=== PATIENT | male | born 1955 | race Caucasian/White ===

== ENCOUNTER 2017-08-14 18:02 | Inpatient (IN) | payer MEDICARE, MEDICAID ==
[~2017-08-14] VITALS: Ht 162.6 cm; Wt 67.3 kg
[2017-08-14] MEDS ORDERED: METFORMIN PO (19:45)
[2017-08-14] MEDS ORDERED: LISI-662 PO (19:45)
[2017-08-14] MEDS ORDERED: CLOP75 PO (19:45)
[2017-08-14] MEDS ORDERED: FINA5TAB41 PO (19:45)
[2017-08-14] MEDS ORDERED: ATOR40TA28 PO (19:45)
[2017-08-14] MEDS ORDERED: CARV25 PO (19:45)
[2017-08-14] MEDS ORDERED: QUET25TA PO (19:45)
[2017-08-14] MEDS ORDERED: TERA5 PO (19:45)
[2017-08-14] MEDS ORDERED: METF500T6 PO (19:46)
[2017-08-14 20:18] LABS: BASOPHILS % (AUTO) 1.1 % (0.0-2.0); EOSINOPHILS % (AUTO) 3.3 % (1.0-6.0); HEMATOCRIT 40.3 % (41-53); HEMOGLOBIN 14.2 g/dL (13.5-17.5); LYMPHOCYTES % (AUTO) 28.2 % (22.0-44.0); MEAN CORPUSCULAR HEMOGLOBIN 30.7 pg (26.0-34.0); MEAN CORPUSCULAR HGB CONC 35.3 G/dL (31.0-37.0); MEAN CORPUSCULAR VOLUME 87 fL (80-100); MONOCYTES # (AUTO) 0.7 K/uL (0.1-1.0); MONOCYTES % (AUTO) 10.1 % (2.0-9.0); NEUTROPHILS # (AUTO) 4.1 K/uL (1.8-7.7); NEUTROPHILS % (AUTO) 57.3 % (40.0-70.0); PLATELET COUNT (AUTO) 210 K/uL (150-450); RED BLOOD CELL COUNT(AUTO) 4.62 MIL/uL (4.50-5.90)
[2017-08-14 20:45] LABS: ANION GAP 5 mmol/L (8-16); CALCIUM, TOTAL 8.5 mg/dL (8.8-10.5); CARBON DIOXIDE 28 mmol/L (22-29); CHLORIDE 102 mmol/L (98-107); CREATININE 1.21 mg/dL (0.60-1.30); GLOMERULAR FILTR. RATE CALC > 60 mL/min (>60); GLUCOSE,RANDOM 293 mg/dL (70-110); POTASSIUM 4.1 mmol/L (3.5-5.1); SODIUM SERUM 135 mmol/L (136-145); UREA NITROGEN, BLOOD 23 mg/dL (7-18)
[2017-08-14 20:52] LABS: ALANINE AMINOTRANSFERASE 23 U/L (12-78); ALBUMIN 2.9 g/dL (3.4-5.0); ALKALINE PHOSPHATASE 83 U/L (46-116); ASPARTATE AMINOTRANSFERASE 14 U/L (15-37); BILIRUBIN,TOTAL 0.3 mg/dL (0.1-1.0)
[2017-08-14] MEDS ORDERED: MetFORMIN HCL 500 MG TABLET PO ONE (21:15)
[2017-08-14] MEDS ORDERED: 0.9% SODIUM CHLORIDE 10 ML SYRINGE IVP PRN (21:15)
[2017-08-14] MEDS ORDERED: SODIUM CHLORIDE 0.9% 1,000 ML IV ONE ×2 (21:15→22:45)
[2017-08-14] MEDS ORDERED: TERAZOSIN HCL 5 MG CAPSULE PO ONE (21:15)
[2017-08-14] MEDS ORDERED: ONDANSETRON HCL 4 MG/2 ML VIAL IVP PRN (21:15)
[2017-08-14] MEDS ORDERED: LISINOPRIL 10 MG TABLET PO ONE (21:15)
[2017-08-14] MEDS ORDERED: ACETAMINOPHEN 325 MG TABLET PO PRN ×2 (21:15→22:45)
[2017-08-14 22:02] LABS: CREATINE KINASE MB 2.3 ng/mL (0-5); CREATINE KINASE, TOTAL 125 U/L (39-308)
[2017-08-14] MEDS ORDERED: DEXTROSE 50%-WATER 25 GM/50 ML SYRINGE IVP PRN (22:45)
[2017-08-14] MEDS ORDERED: AmLODIPine BESYLATE 5 MG TABLET PO SCH (22:45)
[2017-08-14] MEDS ORDERED: MAGNESIUM HYDROXIDE SUSPENSION 30 ML UDCUP PO PRN (22:45)
[2017-08-15] VITALS (7 sets, daily range): BP systolic 116–179; BP diastolic 77–99
[2017-08-15] MEDS ORDERED: PNEUMOCOCCAL VACCINE POLYVALENT 0.5 ML VIAL [PPSV23] IM ONE (01:45)
[2017-08-15 02:52] LABS: AMPHET/METH SCREEN,URINE NEGATIVE (NEGATIVE); BARBITURATE SCREEN, URINE NEGATIVE (NEGATIVE); BENZODIAZEPINES SCREEN,URINE NEGATIVE (NEGATIVE); CANNABINOID SCREEN,URINE NEGATIVE (NEGATIVE); COCAINE SCREEN,URINE NEGATIVE (NEGATIVE); METHADONE SCREEN, URINE NEGATIVE (NEGATIVE); OPIATE SCREEN,URINE NEGATIVE (NEGATIVE); PHENCYCLIDINE SCREEN,URINE NEGATIVE (NEGATIVE)
[2017-08-15] MEDS: INSULIN LISPRO 100 UNITS/ML SQ PRN ×3 (05:42→17:17)
[2017-08-15] MEDS: CARVEDILOL 6.25 MG TABLET PO SCH ×2 (08:40→20:24)
[2017-08-15] MEDS: ASPIRIN 81 MG CHEWABLE TABLET PO SCH (08:40)
[2017-08-15] MEDS: DOCUSATE SODIUM 100 MG CAPSULE PO SCH ×2 (08:40→20:24)
[2017-08-15] MEDS: PANTOPRAZOLE SODIUM 40 MG DR TABLET PO SCH (08:40)
[2017-08-15] MEDS: MetFORMIN HCL 500 MG TABLET PO SCH (17:11)
[2017-08-15] MEDS: OxyCODONE HCL/ACETAMINOPHEN 5-325 MG TABLET PO PRN (18:07)
[2017-08-15 20:14] LABS: GLUCOMETER DEV NAME(LOC) 5S 1M; GLUCOSE,POINT OF CARE 272 MG/DL (70-110)
[2017-08-15 20:14] LABS: GLUCOMETER DEV NAME(LOC) 5S 1M; GLUCOSE,POINT OF CARE 158 MG/DL (70-110)
[2017-08-15] MEDS: ATORVASTATIN CALCIUM 20 MG TABLET PO SCH (20:25)
[2017-08-15] MEDS ORDERED: AmLODIPine BESYLATE 5 MG TABLET PO SCH (21:00)
[2017-08-15 22:28] LABS: GLUCOMETER DEV NAME(LOC) PV 4E2; GLUCOSE,POINT OF CARE 208 MG/DL (70-110)
[2017-08-15 22:28] LABS: GLUCOMETER DEV NAME(LOC) PV 4E2; GLUCOSE,POINT OF CARE 280 MG/DL (70-110)
[2017-08-16 04:55] VITALS: BP 144/92
[2017-08-16] MEDS: INSULIN LISPRO 100 UNITS/ML SQ PRN ×4 (06:21→20:29)
[2017-08-16 06:49] LABS: GLUCOMETER DEV NAME(LOC) PV 4E2; GLUCOSE,POINT OF CARE 200 MG/DL (70-110)
[2017-08-16 07:52] VITALS: BP 142/90
[2017-08-16] MEDS: CARVEDILOL 6.25 MG TABLET PO SCH ×2 (09:05→20:16)
[2017-08-16] MEDS: MetFORMIN HCL 500 MG TABLET PO SCH ×2 (09:05→16:43)
[2017-08-16] MEDS: ASPIRIN 81 MG CHEWABLE TABLET PO SCH (09:06)
[2017-08-16] MEDS: DOCUSATE SODIUM 100 MG CAPSULE PO SCH ×2 (09:06→20:16)
[2017-08-16] MEDS: PANTOPRAZOLE SODIUM 40 MG DR TABLET PO SCH (09:06)
[2017-08-16 12:07] VITALS: BP 143/85
[2017-08-16 12:09] LABS: GLUCOMETER DEV NAME(LOC) PV 4E2; GLUCOSE,POINT OF CARE 280 MG/DL (70-110)
[2017-08-16] MEDS ORDERED: MECLIZINE HCL 25 MG TABLET PO PRN (15:45)
[2017-08-16] MEDS ORDERED: ONDANSETRON HCL 4 MG/2 ML VIAL IM PRN (15:45)
[2017-08-16 15:58] VITALS: BP 143/87
[2017-08-16 16:01] VITALS: BP 141/92
[2017-08-16] MEDS: OxyCODONE HCL/ACETAMINOPHEN 5-325 MG TABLET PO PRN (16:41)
[2017-08-16 17:09] LABS: GLUCOMETER DEV NAME(LOC) PV 4E2; GLUCOSE,POINT OF CARE 265 MG/DL (70-110)
[2017-08-16 20:00] VITALS: BP 153/92
[2017-08-16] MEDS: ATORVASTATIN CALCIUM 20 MG TABLET PO SCH (20:16)
[2017-08-16 20:39] LABS: GLUCOMETER DEV NAME(LOC) PV 4E2; GLUCOSE,POINT OF CARE 163 MG/DL (70-110)
[2017-08-16] MEDS ORDERED: AmLODIPine BESYLATE 10 MG TABLET PO SCH (21:00)
[2017-08-17 00:38] VITALS: BP 154/82
[2017-08-17 04:55] VITALS: BP 168/89
[2017-08-17] MEDS: CloNIDine HCL 0.1 MG TABLET PO PRN ×2 (05:02→12:43)
[2017-08-17 05:14] LABS: GLUCOMETER DEV NAME(LOC) PV 4E2; GLUCOSE,POINT OF CARE 175 MG/DL (70-110)
[2017-08-17] MEDS: INSULIN LISPRO 100 UNITS/ML SQ PRN ×2 (05:23→12:45)
[2017-08-17 07:25] VITALS: BP 169/93
[2017-08-17] MEDS: DOCUSATE SODIUM 100 MG CAPSULE PO SCH (07:54)
[2017-08-17] MEDS: PANTOPRAZOLE SODIUM 40 MG DR TABLET PO SCH (07:54)
[2017-08-17] MEDS: CARVEDILOL 6.25 MG TABLET PO SCH (07:55)
[2017-08-17] MEDS: ASPIRIN 81 MG CHEWABLE TABLET PO SCH (07:55)
[2017-08-17] MEDS: MetFORMIN HCL 500 MG TABLET PO SCH (07:55)
[2017-08-17 11:33] LABS: GLUCOMETER DEV NAME(LOC) PV 4E2; GLUCOSE,POINT OF CARE 308 MG/DL (70-110)
[2017-08-17] MEDS ORDERED: ATOR20TA86 PO (12:01)
[2017-08-17] MEDS ORDERED: CARV6 PO (12:02)
[2017-08-17] MEDS ORDERED: AMLO-512 PO (12:05)
[2017-08-17] MEDS ORDERED: ASPI81 PO (12:05)
== END 2017-08-17 15:00 | disposition home or self-care (01) | DRG 639 ==
LOC: EMS 18:03 → 5S 21:17 → 6N 21:17 → 4E 08-15 15:20
PROVIDERS: ADMIT Internal Medicine; ATTEND Internal Medicine
PROC: 3E0234Z Introduction of Serum, Toxoid and Vaccine into Muscle, Percutaneous Approach (ICD-10-PCS; principal; 2017-08-14)
DX: E11.65 Type 2 diabetes mellitus with hyperglycemia (principal); I10 Essential (primary) hypertension; I25.119 Atherosclerotic heart disease of native coronary artery with unspecified angina pectoris; E78.00 Pure hypercholesterolemia, unspecified; F32.9 Major depressive disorder, single episode, unspecified; Z91.19 Patient's noncompliance with other medical treatment and regimen; Z86.73 Personal history of transient ischemic attack (TIA), and cerebral infarction without residual deficits; Z59.0 Homelessness; Z23 Encounter for immunization
CPT/HCPCS: 80307; 83036; 90471; 93005; 93306; 96360; 99285; J2405; J7030